=== PATIENT | female | born 2000 | race Two or more races ===

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

== ENCOUNTER 2019-01-08 09:25 | Emergency (ER) | payer OTHER | END 2019-01-08 11:20 | disposition home or self-care (01) | LOC: JER 09:25 → JERFT 11:20 ==

== ENCOUNTER 2019-07-09 05:43 | Inpatient (IN) | payer OTHER ==
[2019-07-09] MEDS ORDERED: ACETAMINOPHEN 1000 MG/100 ML VIAL (NON FORMULARY) IVPB ONE (07:17)
[2019-07-09] MEDS ORDERED: ONDANSETRON 4 MG/2 ML VIAL IVPUSH ONE (07:17)
[2019-07-09] MEDS ORDERED: SODIUM CHLORIDE 1,000 ML IV STA (07:17)
[2019-07-09] MEDS ORDERED: FAMOTIDINE 20 MG/50 ML IVPB 20 MG/50 ML MG IVPB ONE ×2 (07:19→07:40)
[2019-07-09] MEDS ORDERED: ONDANSETRON 4 MG/2 ML VIAL ONE (07:39)
[2019-07-09] MEDS ORDERED: ACETAMINOPHEN INJECTION 100 ML IVPB ONE (07:39)
--- NOTE | 2019-07-09 07:48 | PDOC ---
*Physical Exam - Vital Signs Last Vital Signs Temp Pulse Resp BP Pulse Ox 98.3 F 88 20 114/56 L 95 07/09/19 06:19 07/09/19 06:19 07/09/19 06:19 07/09/19 06:19 07/09/19 06:19 ED Treatment Course - LABORATORY CBC & Chemistry Diagram: 07/09/19 07:45 07/09/19 07:45 Medical Decision Making - Medical Decision Making 07/09/19 08:19 Patient seen as pre-attending w/Dr. Mares (PGY-2) 18 y/o female with acute onset of RLQ pain that woke her from sleep this morning - tearful at presentation, improved s/p Tylenol VS unremarkable Belly soft w/mild RLQ and suprapubic TTP Will evaluate for ovarian torsion, PID, also consider appendicitis, gastritis, UTI, STI. 07/09/19 08:43 UA shows Nitrite (+), Leukocyte Esterase (+), 2+ Blood, WBC 3861 07/09/19 17:10 5x4 mm obstructing stone @ R UPJ - patient may require ureteral stent; urology aware of patient as per Dr. Mares Patient admitted to hospitalist service. Clinical Impression: Obstructive nephrolithiasis Discharge - Discharge Information Problems reviewed: Yes Clinical Impression/Diagnosis: UTI (urinary tract infection), Kidney stone Condition: Stable - Follow up/Referral - Patient Discharge Instructions - Post Discharge Activity
[2019-07-09] MEDS ORDERED: PANTOPRAZOLE SODIUM 40 MG VIAL IVPUSH ONE (08:11)
--- NOTE | 2019-07-09 08:30 | PDOC ---
History of Present Illness - General Chief Complaint: Pain Stated Complaint: ABD PAIN History Source: Patient Exam Limitations: No Limitations - History of Present Illness Initial Comments: 07/09/19 08:11 18 yo female no sig medical hx presents to the ED for sudden onset abdominal pain. Pt states she was woken up out of sleep at 4 30 am with sharp, diffuse abdominal pain, NB/NB vomiting and loose stools. The abdominal pain localized to the RLQ, pain made worse with movement. Denies hx abdominal surgery, hx of similar pain, LMP 1 month ago (on OCPs, menstrual cycles regular every month, does not feel like menstrual cramps) F/C, back pain, CP, SOB, changes in urinary habits. Past History - Past Medical History Allergies/Adverse Reactions: Allergies Allergy/AdvReac Type Severity Reaction Status Date / Time No Known Allergies Allergy Verified 07/09/19 06:18 Home Medications: Ambulatory Orders NK [No Known Home Medication] 07/09/19 COPD: No Psychiatric Problems: Yes (MOOD DISORDER) - Immunization History Immunization Up to Date: Yes - Psycho Social/Smoking Cessation Hx Smoking History: Never smoked Have you smoked in the past 12 months: No Information on smoking cessation initiated: No Hx Alcohol Use: No Drug/Substance Use Hx: No Substance Use Type: None Review of Systems - Review of Systems Constitutional: Yes: See HPI HEENTM: Yes: See HPI Respiratory: Yes: See HPI Cardiac (ROS): Yes: See HPI ABD/GI: Yes: See HPI : Yes: See HPI Musculoskeletal: Yes: See HPI Integumentary: Yes: See HPI Neurological: Yes: See HPI *Physical Exam - Vital Signs Last Vital Signs Temp Pulse Resp BP Pulse Ox 98.3 F 88 20 114/56 L 95 07/09/19 06:19 07/09/19 06:19 07/09/19 06:19 07/09/19 06:19 07/09/19 06:19 - Physical Exam General Appearance: Yes: Nourished, Appropriately Dressed. No: Apparent Distress HEENT: positive: EOMI Neck: positive: Supple. negative: Carotid bruit Respiratory/Chest: positive: Lungs Clear, Normal Breath Sounds. negative: Respiratory Distress Cardiovascular: positive: Regular Rhythm, Regular Rate, S1, S2. negative: Edema , JVD, Murmur Vascular Pulses: Dorsalis-Pedis (R): 4+, Doralis-Pedis (L): 4+ Female Pelvic Exam: positive: normal external exam, cervical os closed, normal adnexa, other (optical technician Dr. Eric). negative: CMT, discharge, lesions, adnexal tenderness, vaginal bleeding Gastrointestinal/Abdominal: positive: Flat, Soft, Tenderness (RLQ). negative: Pulsatile Mass, Protuberent, Distended, Guarding, Rebound Musculoskeletal: negative: CVA Tenderness Extremity: positive: Normal Inspection, Normal Range of Motion Integumentary: positive: Normal Color, Dry, Warm Neurologic: positive: Fully Oriented, Alert, Normal Mood/Affect, Normal Response ED Treatment Course - LABORATORY CBC & Chemistry Diagram: 07/09/19 07:45 07/09/19 07:45 - Medications Given in the ED: ED Medications Discontinued Medications Generic Name Dose Route Start Last Admin Trade Name Freq PRN Reason Stop Dose Admin Acetaminophen 1,000 mg 07/09/19 07:17 07/09/19 07:30 Ofirmev Injection - IVPB 07/09/19 07:18 1,000 mg ONCE ONE Administration Famotidine/Sodium Chloride 20 mg in 50 mls @ 100 mls/hr 07/09/19 07:19 07:35 Pepcid 20 Mg Premixed Ivpb - IVPB 07/09/19 07:48 100 mls/hr ONCE ONE Administration Ondansetron HCl 4 mg 07/09/19 07:17 07/09/19 07:30 Zofran Injection IVPUSH 07/09/19 07:18 4 mg ONCE ONE Administration Medical Decision Making - Medical Decision Making 07/09/19 10:45 18 yo female no sig medical hx presents to the ED for sudden onset abdominal pain. Pt states she was woken up out of sleep at 4 30 am with sharp, diffuse abdominal pain, NB/NB vomiting and loose stools. The abdominal pain localized to the RLQ, pain made worse with movement. Denies hx abdominal surgery, hx of similar pain, LMP 1 month ago (on OCPs, menstrual cycles regular every month, does not feel like menstrual cramps) F/C, back pain, CP, SOB, changes in urinary habits. Vitals WNL DDX INLT: appendicitis, ovarian torsion, ectopic preg Labs show 1800 WBC Trans Vag US neg for cyst/torsion CTAP with PO and IV contrast ordered and pending no elevated temp 07/09/19 14:15 CT shows infected renal stone 4 mm with mild hydro on the right Discussed case with Dr. Valentin, he is consulted and will follow the patient in the hospital to determine if stenting is required If pt meets sirs criteria Dr. Valentin would like to be notified 07/09/19 16:16 Discharge - Discharge Information Problems reviewed: Yes Clinical Impression/Diagnosis: UTI (urinary tract infection), Kidney stone Condition: Stable - Admission Yes - Follow up/Referral - Patient Discharge Instructions - Post Discharge Activity
[2019-07-09] MEDS ORDERED: PANTOPRAZOLE SODIUM 40 MG VIAL ONE (08:44)
[2019-07-09 08:50] LABS: BASO % 0.4 % (0-2.0); HEMOGLOBIN 12.4 GM/dL (10.7-15.3); LYMPH % 9.4 % (8-40); MCH 26.6 pg (25.7-33.7); MCHC 32.5 g/dl (32.0-36.0); MEAN CELL VOLUME 81.8 fl (80-96); MEAN PLT VOLUME 8.9 fl (7.5-11.1); NEUT % 87.2 % (42.8-82.8); PLATELET COUNT 273 K/MM3 (134-434); RBC 4.65 M/mm3 (3.60-5.2); RDW 15.2 % (11.6-15.6); WHITE BLOOD COUNT 18.1 K/mm3 (4.0-10.0)
[2019-07-09 09:03] LABS: ALBUMIN 3.6 g/dl (3.4-5.0); BILIRUBIN,TOTAL 0.2 mg/dL (0.2-1); BLOOD UREA NITROGEN 13.8 mg/dL (7-18); CALCIUM 8.8 mg/dL (8.5-10.1); TOT PROT 7.3 g/dl (6.4-8.2)
[2019-07-09 09:21] LABS: URINE APPEARANCE CLOUDY; URINE BILIRUBIN NEGATIVE (NEGATIVE); URINE COLOR YELLOW; URINE GLUCOSE (UA) NEGATIVE (NEGATIVE); URINE KETONE NEGATIVE (NEGATIVE); URINE PROTEIN TRACE (NEGATIVE)
[2019-07-09 09:22] LABS: URINE NITRITE POSITIVE (NEGATIVE); URINE UROBILINOGEN 0.2 mg/dL (0.2-1.0)
[2019-07-09 09:23] LABS: URINE LEUK ESTERASE 1+ (NEGATIVE)
[2019-07-09 09:30] LABS: INR 0.89 (0.83-1.09); PROTHROMBIN TIME (PATIENT) 10.5 SEC (9.7-13.0)
[2019-07-09 09:31] LABS: EPI CELLS 7.1 /HPF (0-5/HPF); HYALINE CASTS 5 /lpf (0-8); URINE BACTERIA 3861.6 /hpf (NEGATIVE); URINE RBC 2 /hpf (0-4); URINE WBC 33 /hpf (0-5)
[2019-07-09] MEDS ORDERED: KETOROLAC TROMETHAMINE 15 MG/ML VIAL IVPUSH ONE (09:31)
[2019-07-09] MEDS ORDERED: KETOROLAC TROMETHAMINE 15 MG/ML VIAL ONE (09:35)
[2019-07-09] MEDS ORDERED: CEFTRIAXONE 1 GM in DEXTROSE 5%-WATER - 100 ML IVPB ONE (09:52)
--- NOTE | 2019-07-09 09:55 | PDOC ---
Documentation entered by Guille Logan SCRIBE, acting as scribe for Aman Fink MD. Aman Fink MD: This documentation has been prepared by the Desmond lakhani Daniel, SCRIBE, under my direction and personally reviewed by me in its entirety. I confirm that the documentation accurately reflects all work, treatment, procedures, and medical decision making performed by me. Attending Attestation - Resident Resident Name: Aman Fink - ED Attending Attestation I have performed the following: I have examined & evaluated the patient, The case was reviewed & discussed with the resident, I agree w/resident's findings & plan, Exceptions are as noted - HPI HPI: 07/09/19 09:37 The patient is a 18 year old female with no past medical history here today for evaluation of sharp right lower quadrant abdominal pain that woke her from sleep at approximately 4:30 AM today. - Physicial Exam PE: 07/09/19 09:53 Patient is awake and alert, well-nourished, in mild distress Normocephalic and atraumatic PERRLA, EOMI, no scleral icterus mm-dry cta rrr Abdomen is soft, nondistended, mild to moderate right lower quadrant and right pelvic tenderness to palpation is appreciated; no guarding rebound - Medical Decision Making 07/09/19 09:55 Patient is 18-year-old female who presents with atraumatic right lower quadrant right lower pelvic pain, leukocytosis and pyuria. Differential diagnosis includes pyelonephritis versus UTI versus nephrolithiasis versus PID versus torsion versus acute appendicitis. Will hydrate, will administer IV ceftriaxone , will administer IV pain meds. Will obtain transvaginal ultrasound to rule out TOA versus torsion. Will consider CT of abdomen pelvis.
[2019-07-09] MEDS ORDERED: CEFTRIAXONE 1 GM/50 ML BAG ONE (10:17)
[2019-07-09] MEDS ORDERED: morphine CARPU-JECT 4 MG/1 ML DISP.SYRIN IVPUSH ONE (13:28)
[2019-07-09] MEDS ORDERED: morphine SULFATE 4 MG/ML VIAL ONE (13:37)
--- NOTE | 2019-07-09 14:39 | EKG ---
Test Reason : Blood Pressure : / mmHG Vent. Rate : 096 BPM Atrial Rate : 096 BPM P-R Int : 128 ms QRS Dur : 090 ms QT Int : 368 ms P-R-T Axes : 064 088 067 degrees QTc Int : 464 ms NORMAL SINUS RHYTHM NORMAL ECG Confirmed by MD RAMIREZ, HERBERT ([id number]) on 07/09/2019 2:39:42 PM Referred By: Confirmed By:HERBERT GUZMÁN MD
[2019-07-09] MEDS: LACTATED RINGERS SOLUTION 1,000 ML/1,000 ML INFUS.BAG IV SCH ×2 (14:51→18:57)
--- NOTE | 2019-07-09 18:21 | HP ---
Admitting History and Physical - Admission Chief Complaint: Abdominal Pain History of Present Illness: 18 yo female no sig medical hx presents to the ED for sudden onset abdominal pain. Pt states she was woken up out of sleep at 4 30 am with sharp, diffuse abdominal pain, NB/NB vomiting and loose stools. The abdominal pain localized to the RLQ, pain made worse with movement. Denies hx abdominal surgery, hx of similar pain, LMP 1 month ago (on OCPs, menstrual cycles regular every month, does not feel like menstrual cramps) F/C, back pain, CP, SOB, changes in urinary habits. History Source: Patient Limitations to Obtaining History: No Limitations - Smoking History Smoking history: Never smoked Have you smoked in the past 12 months: No - Alcohol/Substance Use Hx Alcohol Use: No Home Medications - Allergies Allergies/Adverse Reactions: Allergies Allergy/AdvReac Type Severity Reaction Status Date / Time No Known Allergies Allergy Verified 07/09/19 06:18 - Home Medications Home Medications: Ambulatory Orders NK [No Known Home Medication] 07/09/19 Review of Systems - Review of Systems Constitutional: reports: No Symptoms Eyes: reports: No Symptoms HENT: reports: No Symptoms Neck: reports: No Symptoms Cardiovascular: reports: No Symptoms Respiratory: reports: No Symptoms Gastrointestinal: reports: No Symptoms Genitourinary: reports: Other (Flank pain) Breasts: reports: No Symptoms Reported Musculoskeletal: reports: No Symptoms Integumentary: reports: No Symptoms Neurological: reports: No Symptoms Endocrine: reports: No Symptoms Hematology/Lymphatic: reports: No Symptoms Psychiatric: reports: No Symptoms Physical Examination Vital Signs: Vital Signs Temperature 99.7 F H 07/09/19 18:16 Pulse Rate 126 H 07/09/19 18:16 Respiratory Rate 18 07/09/19 18:16 Blood Pressure 109/51 L 07/09/19 18:16 O2 Sat by Pulse Oximetry (%) 98 07/09/19 15:35 Constitutional: Yes: Well Nourished, No Distress, Calm Cardiovascular: Yes: Regular Rate and Rhythm Respiratory: Yes: Regular Gastrointestinal: Yes: Normal Bowel Sounds, Soft Renal/: Yes: WNL Musculoskeletal: Yes: WNL Extremities: Yes: WNL Edema: No Peripheral Pulses WNL: Yes Neurological: Yes: Alert, Oriented Psychiatric: Yes: Alert, Oriented Labs: CBC, BMP 07/09/19 07:45 07/09/19 07:45 Problem List - Problems (1) Hydronephrosis Assessment/Plan: -Seen by urology -NPO for OR today? Problems reviewed: Yes Code(s): N13.30 - UNSPECIFIED HYDRONEPHROSIS (2) Kidney stone Problems reviewed: Yes Code(s): N20.0 - CALCULUS OF KIDNEY (3) Leukocytosis Assessment/Plan: -IV abx -ID consult -Afebrile -monitor trend -UC pending Problems reviewed: Yes Code(s): D72.829 - ELEVATED WHITE BLOOD CELL COUNT, UNSPECIFIED (4) UTI (urinary tract infection) Assessment/Plan: -UC pending -ID consult -IV abx -Afebrile -monitor leukocytosis Problems reviewed: Yes Code(s): N39.0 - URINARY TRACT INFECTION, SITE NOT SPECIFIED Assessment/Plan see problem list
[2019-07-09] MEDS ORDERED: MIDAZOLAM HCL 2 MG/2 ML SINGLE DOSE VIAL ONE (19:04)
[2019-07-09] MEDS ORDERED: SUCCINYLCHOLINE CHLORIDE 200 MG/10 ML SYRINGE ONE (19:04)
[2019-07-09] MEDS ORDERED: PROPOFOL 20 ML ONE (19:04)
[2019-07-09] MEDS ORDERED: KETOROLAC TROMETHAMINE 30 MG/1 ML VIAL ONE (19:54)
[2019-07-09] MEDS ORDERED: DEXAMETHASONE SOD PHOSPHATE 4 MG/1 ML VIAL ONE (19:54)
[2019-07-09] MEDS ORDERED: ceFAZolin SODIUM 1 GM VIAL IVPB ONE (19:55)
--- NOTE | 2019-07-09 20:06 | OP ---
Operative Note - Note: Operative Date: 07/09/19 Pre-Operative Diagnosis: right renal colic Operation: cystoscopy right DJ stent placement Findings: right hydro obstructing stone Post-Operative Diagnosis: Same as Pre-op Surgeon: Micha Valentin MD. Anesthesia: General Operative Report Dictated: Yes
--- NOTE | 2019-07-09 20:14 | CON.GU ---
Consult Consult Specialty:: Urology Reason for Consultation:: Right renal colic - History of Present Illness Chief Complaint: Right flank pain - History Source History Provided By: Patient, Medical Record - Alcohol/Substance Use Hx Alcohol Use: No - Smoking History Smoking history: Never smoked Have you smoked in the past 12 months: No Home Medications - Allergies Allergies/Adverse Reactions: Allergies Allergy/AdvReac Type Severity Reaction Status Date / Time No Known Allergies Allergy Verified 07/09/19 06:18 - Home Medications Home Medications: Ambulatory Orders NK [No Known Home Medication] 07/09/19 Physical Exam- Vital Signs: Vital Signs Temperature 99.7 F H 07/09/19 18:16 Pulse Rate 126 H 07/09/19 18:16 Respiratory Rate 18 07/09/19 18:16 Blood Pressure 109/51 L 07/09/19 18:16 O2 Sat by Pulse Oximetry (%) 98 07/09/19 15:35 Renal/: Yes: CVA Tenderness - Right Labs: CBC, BMP 07/09/19 07:45 07/09/19 07:45 Imaging - Results Cat Scan: Report Reviewed Problem List - Problems (1) Kidney stone Assessment/Plan: Right renal colic w sepsis DJ stent placed Cont iv fluids and IV abx Will discuss definative management of stone once infection clears Code(s): N20.0 - CALCULUS OF KIDNEY
[2019-07-09] MEDS ORDERED: ONDANSETRON 4 MG/2 ML VIAL IVPUSH PRN (20:23)
[2019-07-09] MEDS ORDERED: LACTATED RINGERS SOLUTION 1,000 ML IV SCH (20:30)
[2019-07-09 20:43] VITALS: BMI 24.3
[2019-07-09] MEDS: ELECTROLYTE-148 SOLN 1,000 ML IV SCH (21:35)
[2019-07-10 08:57] LABS: ALBUMIN 2.6 g/dl (3.4-5.0); BILIRUBIN,TOTAL 0.3 mg/dL (0.2-1); BLOOD UREA NITROGEN 10.9 mg/dL (7-18); CALCIUM 8.2 mg/dL (8.5-10.1); CREATININE 0.9 mg/dL (0.55-1.3); POTASSIUM 3.5 mmol/L (3.5-5.1); TOT PROT 5.3 g/dl (6.4-8.2)
[2019-07-10 09:02] LABS: BASO % 0.2 % (0-2.0); HEMATOCRIT 30.8 % (32.4-45.2); HEMOGLOBIN 10.3 GM/dL (10.7-15.3); LYMPH % 4.2 % (8-40); MCH 27.1 pg (25.7-33.7); MCHC 33.5 g/dl (32.0-36.0); MEAN CELL VOLUME 80.9 fl (80-96); MONO % 5.4 % (3.8-10.2); NEUT % 90.2 % (42.8-82.8); PLATELET COUNT 176 K/MM3 (134-434); RBC 3.81 M/mm3 (3.60-5.2); RDW 15.4 % (11.6-15.6); WHITE BLOOD COUNT 23.7 K/mm3 (4.0-10.0)
[2019-07-10] MEDS ORDERED: CEFTRIAXONE 1 GM in DEXTROSE 5%-WATER - 50 ML IVPB SCH (10:00)
--- NOTE | 2019-07-10 10:08 | PN ---
Progress Note (short form) - Note Progress Note: Anesthesiology post op POD#1. S/P cystoscopy with right stent placement under general anesthesia. VSS, No apparent post anesthesia complications.
[2019-07-10] MEDS ORDERED: DEXTROSE 5%-WATER - 50 ML IVPB ONE (10:09)
[2019-07-10] MEDS ORDERED: cefTRIAXone SODIUM 1 GM VIAL ONE (10:09)
[2019-07-10] MEDS: morphine SULFATE 4 MG/ML VIAL IVPUSH PRN (10:47)
[2019-07-10 12:18] LABS: ANISOCYTOSIS 0; MACROCYTOSIS 0; PLATELET ESTIMATE NORMAL
--- NOTE | 2019-07-10 12:26 | PN ---
Progress Note, Physician Chief Complaint: Right hydronephrosis Obstructing nephrolithiasis UTI History of Present Illness: Operative Date: 07/09/19 Pre-Operative Diagnosis: right renal colic Operation: cystoscopy right DJ stent placement Findings: right hydro obstructing stone Post-Operative Diagnosis: Same as Pre-op Surgeon: Micha Valentin MD. - Current Medication List Current Medications: Active Medications Acetaminophen (Tylenol -) 650 mg PO Q4H PRN PRN Reason: PAIN LEVEL 1-5 Ceftriaxone Sodium 1 gm/ (Dextrose) 50 mls @ 100 mls/hr IVPB DAILY ZACHARY; Protocol Last Admin: 07/10/19 10:44 Dose: 100 mls/hr Parenteral Electrolytes (Plasma-Lyte 148 -) 1,000 mls @ 75 mls/hr IV ASDIR ZACHARY Last Admin: 07/09/19 21:35 Dose: 0 mls Morphine Sulfate (Morphine Sulfate) 4 mg IVPUSH Q6H PRN PRN Reason: PAIN LEVEL 6-10 Last Admin: 07/10/19 10:47 Dose: 4 mg Ondansetron HCl (Zofran Injection) 4 mg IVPUSH Q6H PRN PRN Reason: NAUSEA AND/OR VOMITING - Objective Vital Signs: Vital Signs Temperature 98.9 F 07/10/19 09:49 Pulse Rate 102 H 07/10/19 09:49 Respiratory Rate 18 07/10/19 09:49 Blood Pressure 100/54 L 07/10/19 09:49 O2 Sat by Pulse Oximetry (%) 98 07/09/19 21:35 Constitutional: Yes: Well Nourished, No Distress, Calm Cardiovascular: Yes: Regular Rate and Rhythm Respiratory: Yes: Regular Gastrointestinal: Yes: Normal Bowel Sounds, Soft Genitourinary: Yes: WNL Musculoskeletal: Yes: WNL Extremities: Yes: WNL Edema: No Peripheral Pulses WNL: Yes Neurological: Yes: Alert, Oriented Psychiatric: Yes: Alert, Oriented Labs: CBC, BMP 07/10/19 07:23 07/10/19 07:23 INR, PTT INR 0.89 (0.83-1.09) 07/09/19 07:45 Problem List - Problems (1) Hydronephrosis Assessment/Plan: -Seen by urology -S/P right DJ stent placement Problems reviewed: Yes Code(s): N13.30 - UNSPECIFIED HYDRONEPHROSIS (2) Kidney stone Problems reviewed: Yes Code(s): N20.0 - CALCULUS OF KIDNEY (3) Leukocytosis Assessment/Plan: -IV abx -ID on board -Afebrile -monitor trend -UC pending Problems reviewed: Yes Code(s): D72.829 - ELEVATED WHITE BLOOD CELL COUNT, UNSPECIFIED (4) UTI (urinary tract infection) Assessment/Plan: -UC pending -ID consult -IV abx -Afebrile -monitor leukocytosis Problems reviewed: Yes Code(s): N39.0 - URINARY TRACT INFECTION, SITE NOT SPECIFIED Assessment/Plan see problem list
[2019-07-10] MEDS: ELECTROLYTE-148 SOLN 1,000 ML IV SCH (12:29)
--- NOTE | 2019-07-10 12:30 | PN ---
Progress Note (short form) - Note Progress Note: ID consult dictated imp/reccd 18 yo female admitted from home with acute onset of RLQ pain yesterday, fevers and chills in ED with vomiitinng found to have right nephrolithiasis with right hydronephrosis s/p cystoscopy and stnet placement last night asked to see for leukocytosis reports nausea and vomiting have resolved eating lunch had some fever earlier this am no history of prior UTI leukocytosis secondary to UTI UTI obstructive uropathy- s/p stent for nephrolithiasis (right) continue ceftriaxone f/u cultures obtain blood cultures for further fever Problem List - Problems (1) Leukocytosis Code(s): D72.829 - ELEVATED WHITE BLOOD CELL COUNT, UNSPECIFIED (2) UTI (urinary tract infection) Code(s): N39.0 - URINARY TRACT INFECTION, SITE NOT SPECIFIED (3) Kidney stone Code(s): N20.0 - CALCULUS OF KIDNEY (4) Hydronephrosis Code(s): N13.30 - UNSPECIFIED HYDRONEPHROSIS
[2019-07-10] MEDS ORDERED: CEFTRIAXONE 1 GM in DEXTROSE 5%-WATER - 50 ML IVPB ONE (14:06)
[2019-07-10 16:08] LABS: HEMATOCRIT 31.9 % (32.4-45.2); HEMOGLOBIN 10.5 GM/dL (10.7-15.3); MCH 26.9 pg (25.7-33.7); MCHC 32.8 g/dl (32.0-36.0); MEAN CELL VOLUME 82.1 fl (80-96); MEAN PLT VOLUME 8.7 fl (7.5-11.1); PLATELET COUNT 163 K/MM3 (134-434); RBC 3.89 M/mm3 (3.60-5.2); RDW 15.3 % (11.6-15.6); WHITE BLOOD COUNT 19.9 K/mm3 (4.0-10.0)
[2019-07-10] MEDS: ACETAMINOPHEN 325 MG TABLET (FP) PO PRN (17:15)
--- NOTE | 2019-07-10 18:03 | OP ---
DATE OF OPERATION: 07/09/2019 PREOPERATIVE DIAGNOSIS: Right hydronephrosis, urosepsis. POSTOPERATIVE DIAGNOSIS: Right hydronephrosis, urosepsis. PROCEDURE: Right double-J ureteral stent placement. HISTORY: This is a 18-year-old female with a 2-day history of renal colic on the right side. The patient was found to have right hydronephrosis. She was tachycardic with an elevated white count of 18,000. Blood pressure was stable. Due to signs of sepsis, a drainage by double-J stent was recommended. Informed consent was obtained. Risks and benefits of treatment, alternative treatments discussed in detail, all questions were answered. BRIEF OPERATIVE NOTE: Patient brought in to the operating room, placed in supine position. Once general anesthesia was administered, the patient was transferred to the dorsal lithotomy position, prepped and draped in standard sterile fashion. Intravenous antibiotics were given in the form of Ancef. A 23-Azeri cystoscope sheath was placed into the bladder under direct vision. The bladder was unremarkable. The right ureteral orifice was identified. A 0.038 guidewire was passed into the renal pelvis. This was confirmed fluoroscopically. The stone at the UPJ was visualized. At this time, a 22-cm 6-Azeri double-J stent was passed over the guidewire. The stent was fluoroscopically confirmed to be in normal position. The wire was removed. A urine culture was obtained. The bladder was drained and the patient was brought to the recovery room in stable and satisfactory condition. Paulo MUNSON/[id number]
[2019-07-10] MEDS ORDERED: PIPERACILLIN/TAZOBACTAM 4.5 GM VIAL IVPB ONE (18:45)
[2019-07-10] MEDS ORDERED: DEXTROSE 5%-WATER 100 ML IVPB ONE (18:45)
[2019-07-10] MEDS: PIPERACILLIN/TAZOB 4.5 GM 4.5 GM in DEXTROSE 5%-WATER 100 ML IVPB SCH (19:26)
--- NOTE | 2019-07-10 20:55 | CONS ---
DATE OF CONSULTATION: DATE OF DICTATION: 07/10/2019 This is a 18-year-old woman, who lives in [place]. She developed acute onset of right lower quadrant pain that woke her yesterday morning. It lasted for about an hour at home without any relief. She thought she was constipated but moved her bowels without any improvement. She came to the emergency room with these complaints. In the ER, it was noted she had some fevers and chills and she had some vomiting. She denied any hematuria. She had a workup in the ER that included a CAT scan that showed right renal stone at the UPJ junction creating moderate hydronephrosis. She was noted to have a white count of 18,000. She was started on ceftriaxone. Yesterday evening, she was taken to the operating room by the urologist and she underwent cystoscopy with stent placement for the right-sided hydronephrosis. I am asked to see her for further management. This morning, she is awake and alert. She reports minimal pain. She did not notice any hematuria. She has no respiratory symptoms or chest symptoms. She does note that she had had some moderate discomfort in her right lower quadrant earlier today and had had pain medications. Her past medical history is unremarkable. She has no known drug allergies. She takes oral contraceptives. SOCIAL HISTORY: She is a student. She also works in retail. She goes to [employer] [facility] [employer] [facility] [employer]. There has been no recent travel anywhere. REVIEW OF SYSTEMS: She does not recall having had a UTI recently. Her last antibiotics were 5 months ago for a tonsil infection. PHYSICAL EXAMINATION: General: She is awake and alert. She looks comfortable. She is a pleasant young woman in no acute distress. She is eating her lunch. Vital Signs: Temperature is 98.9. Pulse 102. Blood pressure 100/54. Respiratory rate 18. HEENT: Normocephalic. Her eyes are anicteric. Neck: Supple. Lungs: Clear to auscultation. Heart: Regular rate and rhythm. Abdomen: Soft. Currently she has minimal right CVA tenderness. She has some mild right lower quadrant discomfort to palpation. Extremities: Without edema. White count is 23,000, hemoglobin 10.3, platelets 176. BUN 10, creatinine 0.9. LFTs are normal. Urinalysis has 1+ leukocytes with 33 white cells, and her urine culture is pending. In summary, this is a 18-year-old woman admitted from home, acute onset of abdominal pain, found to have leukocytosis secondary to UTI, obstructive uropathy with nephrolithiasis, requiring stent placement. I would continue ceftriaxone, follow up culture, and would obtain blood cultures if she has further fever. Case was discussed with the hospitalist. TRENT CASTELLANOS M.D. RIDDHI/[id number]
[2019-07-11] MEDS ORDERED: PIPERACILLIN/TAZOBACTAM 4.5 GM VIAL IVPB ONE ×3 (01:20→18:03)
[2019-07-11] MEDS ORDERED: DEXTROSE 5%-WATER 100 ML IVPB ONE ×3 (01:20→18:03)
[2019-07-11] MEDS: PIPERACILLIN/TAZOB 4.5 GM 4.5 GM in DEXTROSE 5%-WATER 100 ML IVPB SCH ×3 (01:39→18:05)
[2019-07-11] MEDS: ACETAMINOPHEN 325 MG TABLET (FP) PO PRN ×2 (01:39→16:17)
[2019-07-11] MEDS: morphine SULFATE 4 MG/ML VIAL IVPUSH PRN (01:45)
[2019-07-11] MEDS: ELECTROLYTE-148 SOLN 1,000 ML IV SCH ×2 (01:54→20:00)
--- NOTE | 2019-07-11 09:01 | PN ---
Progress Note (short form) - Note Progress Note: fevers overnight, reports she has fever when she urinates no nausea or vomiting still some RLQ pain Vital Signs Period Temp Pulse Resp BP Sys/Atkins Pulse Ox Last 24 Hr 98.8 F-102.2 F 80-117 18-18 97-115/54-69 99-99 cor-rrr lungs clear abd soft,mild right pelvic discomfort ext no edema CBC, BMP 07/10/19 15:26 07/10/19 07:23 TODAY"S LABS not yet drawn cultures pending a/p fevers- cultures sent, switched to zosyn, for renal sonogram to evaluate for hyronephrosis urology f/u UTI obstructive uropathy- s/p stent for nephrolithiasis (right) zosyn cultures iv fluids renal sonogram Problem List - Problems (1) Leukocytosis Code(s): D72.829 - ELEVATED WHITE BLOOD CELL COUNT, UNSPECIFIED (2) UTI (urinary tract infection) Code(s): N39.0 - URINARY TRACT INFECTION, SITE NOT SPECIFIED (3) Kidney stone Code(s): N20.0 - CALCULUS OF KIDNEY (4) Hydronephrosis Code(s): N13.30 - UNSPECIFIED HYDRONEPHROSIS
[2019-07-11] MEDS ORDERED: CEFTRIAXONE 2 GM in DEXTROSE 5%-WATER 100 ML IVPB SCH (10:00)
[2019-07-11 10:10] LABS: HEMATOCRIT 29.7 % (32.4-45.2); HEMOGLOBIN 9.9 GM/dL (10.7-15.3); MCH 27.2 pg (25.7-33.7); MCHC 33.4 g/dl (32.0-36.0); MEAN CELL VOLUME 81.3 fl (80-96); MEAN PLT VOLUME 8.8 fl (7.5-11.1); PLATELET COUNT 141 K/MM3 (134-434); RBC 3.65 M/mm3 (3.60-5.2); RDW 15.2 % (11.6-15.6); WHITE BLOOD COUNT 9.7 K/mm3 (4.0-10.0)
[2019-07-11 10:28] LABS: BLOOD UREA NITROGEN 7.5 mg/dL (7-18); CALCIUM 7.8 mg/dL (8.5-10.1); CREATININE 0.7 mg/dL (0.55-1.3); POTASSIUM 3.6 mmol/L (3.5-5.1)
--- NOTE | 2019-07-11 15:22 | PN ---
Progress Note (short form) - Note Progress Note: Tm 102.2 \VSS she appears comfortable in bed, awake and alert, non toxic abd soft no cvat WBC down to 9 Ur culture is pending. Continue ABX wait for sensitivities.
--- NOTE | 2019-07-11 16:28 | PN ---
Progress Note, Physician Chief Complaint: S/P RIGHT HYDRONEPHROSIS S/P STENT FOR OBSTRUCTING STONE PATIENT IN MED/SURG AWAKE NO DISTRESS EVENTS AND OPERATIVE NOTES REVIEWED POSITIVE APPETITE - Current Medication List Current Medications: Active Medications Acetaminophen (Tylenol -) 650 mg PO Q4H PRN PRN Reason: PAIN LEVEL 1-5 Last Admin: 07/11/19 16:17 Dose: 650 mg Parenteral Electrolytes (Plasma-Lyte 148 -) 1,000 mls @ 75 mls/hr IV ASDIR ZACHARY Last Admin: 07/11/19 01:54 Dose: 75 mls/hr Piperacillin Sod/Tazobactam (Sod 4.5 gm/ Dextrose) 100 mls @ 200 mls/hr IVPB Q8H-IV ZACHARY; Protocol Last Admin: 07/11/19 10:24 Dose: 200 mls/hr Morphine Sulfate (Morphine Sulfate) 4 mg IVPUSH Q6H PRN PRN Reason: PAIN LEVEL 6-10 Last Admin: 07/11/19 01:45 Dose: 4 mg Ondansetron HCl (Zofran Injection) 4 mg IVPUSH Q6H PRN PRN Reason: NAUSEA AND/OR VOMITING - Objective Vital Signs: Vital Signs Temperature 101.1 F H 07/11/19 16:12 Pulse Rate 97 H 07/11/19 14:00 Respiratory Rate 07/11/19 14:00 Blood Pressure 112/55 L 07/11/19 14:00 O2 Sat by Pulse Oximetry (%) 99 07/10/19 21:00 Constitutional: Yes: Mild Distress Cardiovascular: Yes: WNL Respiratory: Yes: WNL Gastrointestinal: Yes: WNL Genitourinary: Yes: WNL Musculoskeletal: Yes: WNL Extremities: Yes: WNL Edema: No Integumentary: Yes: WNL Wound/Incision: Yes: Clean/Dry Neurological: Yes: WNL ...Motor Strength: WNL Psychiatric: Yes: WNL Labs: CBC, BMP 07/11/19 08:55 07/11/19 08:55 INR, PTT INR 0.89 (0.83-1.09) 07/09/19 07:45 Problem List - Problems (1) Hydronephrosis Code(s): N13.30 - UNSPECIFIED HYDRONEPHROSIS (2) Kidney stone Code(s): N20.0 - CALCULUS OF KIDNEY (3) Leukocytosis Code(s): D72.829 - ELEVATED WHITE BLOOD CELL COUNT, UNSPECIFIED (4) UTI (urinary tract infection) Code(s): N39.0 - URINARY TRACT INFECTION, SITE NOT SPECIFIED Assessment/Plan CONTINUE IV ZOSYN TYLENOL FOR FEVERS SONO OF KIDNEY REVIEWED NO ABSCESS HOWEVER THERE IS GALLBLADDER SLUDGE AND THE LFT'S ARE NORMAL. ADVANCE DIET FOLLOW CULTURES REPEAT WBC IS 9, AND I WILL ORDER LABS IN MORNING FAMILY BEDSIDE AND I DISCUSSED THE CASE WITH THEM.
[2019-07-12] MEDS ORDERED: PIPERACILLIN/TAZOBACTAM 4.5 GM VIAL IVPB ONE ×4 (01:10→17:51)
[2019-07-12] MEDS ORDERED: DEXTROSE 5%-WATER 100 ML IVPB ONE ×2 (01:10→17:51)
[2019-07-12] MEDS: PIPERACILLIN/TAZOB 4.5 GM 4.5 GM in DEXTROSE 5%-WATER 100 ML IVPB SCH ×3 (01:18→18:52)
--- NOTE | 2019-07-12 08:05 | PN ---
Progress Note, Physician Chief Complaint: GRAM NEG BACILI IN URINE CX PATIENT WITH PERSISTENT LOW GRADE FEVERS AWAKE ALERT FEELS BETTER - Current Medication List Current Medications: Active Medications Acetaminophen (Tylenol -) 650 mg PO Q4H PRN PRN Reason: PAIN LEVEL 1-5 Last Admin: 07/11/19 16:17 Dose: 650 mg Parenteral Electrolytes (Plasma-Lyte 148 -) 1,000 mls @ 75 mls/hr IV ASDIR ZACHARY Last Admin: 07/11/19 20:00 Dose: 75 mls/hr Piperacillin Sod/Tazobactam (Sod 4.5 gm/ Dextrose) 100 mls @ 200 mls/hr IVPB Q8H-IV ZACHARY; Protocol Last Admin: 07/12/19 01:18 Dose: 200 mls/hr Morphine Sulfate (Morphine Sulfate) 4 mg IVPUSH Q6H PRN PRN Reason: PAIN LEVEL 6-10 Last Admin: 07/11/19 01:45 Dose: 4 mg Ondansetron HCl (Zofran Injection) 4 mg IVPUSH Q6H PRN PRN Reason: NAUSEA AND/OR VOMITING - Objective Vital Signs: Vital Signs Temperature 98.1 F 07/12/19 06:00 Pulse Rate 85 07/12/19 06:00 Respiratory Rate 18 07/12/19 06:00 Blood Pressure 120/64 07/12/19 06:00 O2 Sat by Pulse Oximetry (%) 98 07/11/19 22:00 Constitutional: Yes: Mild Distress Cardiovascular: Yes: Regular Rate and Rhythm Respiratory: Yes: WNL Gastrointestinal: Yes: WNL Genitourinary: Yes: WNL Musculoskeletal: Yes: WNL Edema: No Integumentary: Yes: WNL Wound/Incision: Yes: Clean/Dry ...Motor Strength: WNL Psychiatric: Yes: WNL Labs: CBC, BMP 07/11/19 08:55 07/11/19 08:55 INR, PTT INR 0.89 (0.83-1.09) 07/09/19 07:45 Problem List - Problems (1) Hydronephrosis Code(s): N13.30 - UNSPECIFIED HYDRONEPHROSIS (2) Kidney stone Code(s): N20.0 - CALCULUS OF KIDNEY (3) Leukocytosis Code(s): D72.829 - ELEVATED WHITE BLOOD CELL COUNT, UNSPECIFIED (4) UTI (urinary tract infection) Code(s): N39.0 - URINARY TRACT INFECTION, SITE NOT SPECIFIED Assessment/Plan GRAM NEG BACILLI SENSITIVITY PENDING IV ZOSYN CONTINUE OOB TO CHAIR LABS PENDING IMPROVING ANTICIPATING DISCHARGE ONCE SENSITIVITY BACK
[2019-07-12 09:09] LABS: BASO % 0.3 % (0-2.0); EOS % 0.6 % (0-4.5); HEMOGLOBIN 9.7 GM/dL (10.7-15.3); LYMPH % 21.9 % (8-40); MCH 27.3 pg (25.7-33.7); MCHC 33.6 g/dl (32.0-36.0); MEAN CELL VOLUME 81.3 fl (80-96); MEAN PLT VOLUME 8.5 fl (7.5-11.1); NEUT % 65.2 % (42.8-82.8); PLATELET COUNT 158 K/MM3 (134-434); RBC 3.56 M/mm3 (3.60-5.2); RDW 15.6 % (11.6-15.6); WHITE BLOOD COUNT 8.4 K/mm3 (4.0-10.0)
[2019-07-12 09:34] LABS: ALBUMIN 2.3 g/dl (3.4-5.0); BILIRUBIN,TOTAL 0.3 mg/dL (0.2-1); CALCIUM 8.1 mg/dL (8.5-10.1); CREATININE 0.7 mg/dL (0.55-1.3); POTASSIUM 3.5 mmol/L (3.5-5.1); TOT PROT 5.3 g/dl (6.4-8.2)
--- NOTE | 2019-07-12 10:42 | PN.GI ---
GI Progress Note Subjective: Pt feels well jenifer po well Comfortable no pain - Objective Vital Signs: Vital Signs Temperature 98.1 F 07/12/19 06:00 Pulse Rate 85 07/12/19 06:00 Respiratory Rate 18 07/12/19 06:00 Blood Pressure 120/64 07/12/19 06:00 O2 Sat by Pulse Oximetry (%) 98 07/11/19 22:00 Labs: CBC, BMP 07/12/19 08:30 07/12/19 08:30 INR, PTT INR 0.89 (0.83-1.09) 07/09/19 07:45 Problem List - Problems (1) Kidney stone Assessment/Plan: Right renal calculi w stent in place No hydro WBC 8 Two 7 mm right renal calculi on sonogram Will require definitive tx for renal calculi p infection clears Code(s): N20.0 - CALCULUS OF KIDNEY
[2019-07-12] MEDS: ELECTROLYTE-148 SOLN 1,000 ML IV SCH ×2 (11:19→22:00)
--- NOTE | 2019-07-12 16:19 | PN ---
Progress Note (short form) - Note Progress Note: feels well no complaints eating no dysuria no stent pain Vital Signs Period Temp Pulse Resp BP Sys/Atkins Pulse Ox Last 24 Hr 98.1 F-99.8 F 84-99 18-20 107-123/64-83 98 cor-rrr lungs clear abd soft,nt ext no edema CBC, BMP 07/12/19 08:30 07/12/19 08:30 Microbiology 07/09/19 20:30 Urine - Urine, Via Cystoscope Urine Culture - Final Escherichia Coli 07/10/19 19:25 Blood - Peripheral Venous Blood Culture - Preliminary NO GROWTH OBTAINED AFTER 24 HOURS, INCUBATION TO CONTINUE FOR 4 DAYS. 07/10/19 19:25 Blood - Peripheral Venous Blood Culture - Preliminary NO GROWTH OBTAINED AFTER 24 HOURS, INCUBATION TO CONTINUE FOR 4 DAYS. a/p UTI-calderon sensitive UTI, can switch to po bactrim 1 po bid for another 7 days obstructive uropathy- s/p stent for nephrolithiasis (right) day #3 antibioitcs will need urology f/u as outpt Problem List - Problems (1) Leukocytosis Code(s): D72.829 - ELEVATED WHITE BLOOD CELL COUNT, UNSPECIFIED (2) UTI (urinary tract infection) Code(s): N39.0 - URINARY TRACT INFECTION, SITE NOT SPECIFIED (3) Kidney stone Code(s): N20.0 - CALCULUS OF KIDNEY (4) Hydronephrosis Code(s): N13.30 - UNSPECIFIED HYDRONEPHROSIS
[2019-07-12] MEDS: ACETAMINOPHEN 325 MG TABLET (FP) PO PRN (21:04)
[2019-07-13] MEDS ORDERED: PIPERACILLIN/TAZOBACTAM 4.5 GM VIAL IVPB ONE ×2 (01:16→10:01)
[2019-07-13] MEDS ORDERED: DEXTROSE 5%-WATER 100 ML IVPB ONE ×2 (01:17→10:01)
[2019-07-13] MEDS: PIPERACILLIN/TAZOB 4.5 GM 4.5 GM in DEXTROSE 5%-WATER 100 ML IVPB SCH ×2 (01:23→10:46)
[2019-07-13] MEDS: ELECTROLYTE-148 SOLN 1,000 ML IV SCH (04:44)
[2019-07-13 10:13] VITALS: BP 115/70; PULSE 67; TEMP 98.9
--- NOTE | 2019-07-13 10:30 | DS ---
Physical Examination Vital Signs: Vital Signs Temperature 98.9 F 07/13/19 09:00 Pulse Rate 67 07/13/19 09:00 Respiratory Rate 18 07/13/19 09:00 Blood Pressure 115/70 07/13/19 09:00 O2 Sat by Pulse Oximetry (%) 98 07/12/19 11:00 Constitutional: Yes: No Distress Cardiovascular: Yes: Regular Rate and Rhythm Respiratory: Yes: WNL Gastrointestinal: Yes: WNL Renal/: Yes: WNL Musculoskeletal: Yes: WNL Edema: No Labs: CBC, BMP 07/12/19 08:30 07/12/19 08:30 Discharge Summary Problems reviewed: Yes Reason For Visit: URINARY TRACT INFECTION, CALCULUS OF KIDNEY Current Active Problems Hydronephrosis (Acute) Kidney stone (Acute) Leukocytosis (Acute) UTI (urinary tract infection) (Acute) Procedures: Principal: URETER STENT HYDRONEPHROSIS Hospital Course: ADMITTED WITH URINARY RETENTION AND STENT PLACED IN URETER TO RELIEVE THE OBSTRUCTION TREATED WITH IV ABX FOR INFECTION. Plan of Treatment: BACTRIM DS BID 7 DAYS Condition: Improved - Instructions Diet, Activity, Other Instructions: SEE DR FIGUEROA NEXT Thursday AT 1130AM FOR FOLLOW UP IF FEVERS/HEMATURES OR ANY SEVERE ISSUES RETURN TO E.D. UROLOGY FOLLOW UP DR RILEY Referrals: Maikol Figueroa MD [Primary Care Provider] - Disposition: HOME - Home Medications Comprehensive Discharge Medication List: Ambulatory Orders Isibloom 28 Day Tablet 1 PO DAILY 07/11/19 Acetaminophen [Tylenol .Regular Strength -] 650 mg PO Q4H PRN tablet 07/13/19 Sulfamethoxazole/Trimethoprim [Bactrim Ds -] 1 tab PO BID 7 Days #14 tablet 05/20
== END 2019-07-13 11:55 | disposition home or self-care (01) | DRG 463 ==
LOC: JER 05:43 → JERBED 14:19 → J5S 17:32
PROVIDERS: ADMIT Family Medicine; ATTEND Family Medicine
PROC: 0TJB8ZZ Inspection of Bladder, Via Natural or Artificial Opening Endoscopic (ICD-10-PCS; principal; 2019-07-09 19:15)
PROC: 0T767DZ Dilation of Right Ureter with Intraluminal Device, Via Natural or Artificial Opening (ICD-10-PCS; 2019-07-09 19:15)
DX: N13.6 Pyonephrosis (principal); R10.2 Pelvic and perineal pain; R82.81 Pyuria; D72.829 Elevated white blood cell count, unspecified; R00.0 Tachycardia, unspecified; N20.0 Calculus of kidney
CPT/HCPCS: 36415; 74018-TC-FY; 74177-TC; 76000-TC-FY; 76775-TC; 76830-TC; 80048; 80053; 81003; 83690; 84703; 85025; 85027; 85610; 85730; 86850; 86900; 86901; 87040; 87086; 87186; 87491; 87591; 93005; 93010; 94760; 99283-25; J0131; J7030; Q9967